=== PATIENT | female | born 1995 | race African-American/Black ===

== ENCOUNTER 2022-06-20 04:20 | Emergency (ER) | payer OTHER ==
[2022-06-20] MEDS ORDERED: DIPHENHYDRAMINE 50 MG/ML VIAL ONE (05:31)
[2022-06-20] MEDS ORDERED: METOCLOPRAMIDE 10 MG/2mL INJ ONE (05:31)
[2022-06-20] MEDS ORDERED: NA CHLORIDE 0.9% 500 ML ONE (05:32)
[2022-06-20] MEDS ORDERED: KETOROLAC 30 MG/ML INJ ONE (05:32)
[2022-06-20 06:11] LABS: Urine Blood 2+ (Negative); Urine Glucose Negative (Negative); Urine Protein Negative (Negative); Urine Specific Gravity 1.015 (1.005-1.030)
[2022-06-20 06:25] LABS: Urine Specific Gravity/Preg 1.015 (1.005-1.030)
[2022-06-20 06:44] VITALS: O2SAT 100
[2022-06-20 07:00] VITALS: BP 134/79; TEMP 98
--- NOTE | 2022-06-20 13:24 | RAD REPORT ---
EXAM DESCRIPTION: CT - Head Brain Wo Cont - 06/20/2022 7:03 am CLINICAL HISTORY: The patient is 26 years old and is Female; PAIN TECHNIQUE: Axial computed tomography images of the head/brain without intravenous contrast. Sagitt al and coronal reformatted images were created and reviewed. This CT exam was performed using one o r more of the following dose reduction techniques: automated exposure control, adjustment of the mA and/or kV according to patient size, and/or use of iterative reconstruction technique. COMPARISON: No relevant prior studies available. FINDINGS: Brain: Unremarkable. No hemorrhage. No significant white matter disease. No edema. Ventricles: Unremarkable. No ventriculomegaly. Bones/joints: Unremarkable. No acute fracture. Soft tissues: Unremarkable. Sinuses: Unremarkable as visualized. Mastoid air cells: Unremarkable as visualized. No mastoid effusion. IMPRESSION: No acute intracranial abnormality. 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 The interpreting radiologist is fully responsible for the content of the report.
--- NOTE | 2022-07-07 14:10 | EDPHYS ---
Physician Documentation [facility] Name: Natasha Sarmiento Age: 26 yrs Sex: Female : 1995 Arrival Date: 06/20/2022 Time: 04:24 Bed 6 Private MD: ED Physician Gabo Parra HPI: 06/20 05:08 This 26 yrs old Black Female presents to ER via Ambulatory with complaints of Headache. sp4 06:16 Patient states she has developed worsening headache in the last 24 hours that he is sp4 global headache and it is throbbing in quality moderate to severe, without vomiting, associated with light sensitivity, patient is breast-feeding at this time her baby is 11 months old, patient took Tylenol at home without relief, patient denied fever, neck stiffness, and denied vision changes. 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 Last tetanus immunization: < 5 years ago Flu vaccine is up to date. - Social history:: Smoking status: Patient denies any tobacco usage or history of. Patient/guardian denies using alcohol, street drugs. - Family history:: not pertinent. ROS: 06:16 Constitutional: Negative for fever, chills, and weight loss, Eyes: Negative for injury, sp4 pain, redness, and discharge, ENT: Negative for injury, pain, and discharge, Neck: Negative for injury, pain, and swelling, Cardiovascular: Negative for chest pain, palpitations, and edema, Respiratory: Negative for shortness of breath, cough, wheezing, and pleuritic chest pain, Abdomen/GI: Negative for abdominal pain, nausea, vomiting, diarrhea, and constipation, Back: Negative for injury and pain, MS/Extremity: Negative for injury and deformity, Skin: Negative for injury, rash, and discoloration, Neuro: Negative for weakness, numbness, tingling, and seizure, positive for global headache Psych: Negative for depression, anxiety, suicide ideation, homicidal ideation, and hallucinations, Allergy/Immunology: Negative for hives, rash, and allergies, Endocrine: Negative for neck swelling, polydipsia, polyuria, polyphagia, and marked weight changes, Hematologic/Lymphatic: Negative for swollen nodes, abnormal bleeding, and unusual bruising. Exam: 06:16 Constitutional: This is a well developed, well nourished patient who is awake, alert, sp4 and in no acute distress. Head/Face: Normocephalic, atraumatic. Eyes: Pupils equal round and reactive to light, extra-ocular motions intact. Lids and lashes normal. Conjunctiva and sclera are non-icteric and not injected. Cornea within normal limits. Periorbital areas with no swelling, redness, or edema. ENT: Nares patent. No nasal discharge, no septal abnormalities noted. Tympanic membranes are normal and external auditory canals are clear. Oropharynx with no redness, swelling, or masses, exudates, or evidence of obstruction, uvula midline. Mucous membranes moist. Neck: Trachea midline, no thyromegaly or masses palpated, and no cervical lymphadenopathy. Supple, full range of motion without nuchal rigidity, or vertebral point tenderness. No Meningismus. Chest/axilla: Normal chest wall appearance and motion. Nontender with no deformity. No lesions are appreciated. Cardiovascular: Regular rate and rhythm with a normal S1 and S2. No gallops, murmurs, or rubs. Normal PMI, no JVD. No pulse deficits. Respiratory: Lungs have equal breath sounds bilaterally, clear to auscultation and percussion. No rales, rhonchi or wheezes noted. No increased work of breathing, no retractions or nasal flaring. Abdomen/GI: Soft, non-tender, with normal bowel sounds. No distension or tympany. No guarding or rebound. No evidence of tenderness throughout. Back: No spinal tenderness. No costovertebral tenderness. Full range of motion. Skin: Warm, dry with normal turgor. Normal color with no rashes, no lesions, and no evidence of cellulitis. MS/ Extremity: Pulses equal, no cyanosis. Neurovascular intact. Full, normal range of motion. Neuro: Awake and alert, GCS 15, oriented to person, place, time, and situation. Cranial nerves II-XII grossly intact. Motor strength 5/5 in all extremities. Sensory grossly intact. Cerebellar exam normal. Normal gait. Psych: Awake, alert, with orientation to person, place and time. Behavior, mood, and affect are within normal limits. Vital Signs: 04:40 BP 130 / 86; Pulse 97; Resp 18; Temp 98.8; Pulse Ox 100% on R/A; Weight 52.16 kg; pf1 Height 5 ft. 3 in. ; Pain 9/10; 05:30 BP 119 / 83; Pulse 93; Resp 18; Pulse Ox 100% on R/A; pf1 06:30 BP 134 / 79; Pulse 97; Resp 18; Temp 98; Pulse Ox 100% on R/A; Pain 0/10; pf1 04:40 Body Mass Index 20.37 (52.16 kg, 160.02 cm) pf1 04:40 Pain Scale: Adult pf1 06:30 Pain Scale: Adult pf1 [place] Coma Score: 06:16 Eye Response: spontaneous(4). Motor Response: obeys commands(6). Verbal Response: sp4 oriented(5). Total: 15. MDM: 05:17 Patient medically screened. sp4 06:16 Differential diagnosis: migraine, subarachnoid bleed, tension headache, trigeminal sp4 neuralgia, vasomotor headache. Data reviewed: vital signs, nurses notes, lab test result(s), radiologic studies, CT scan. 06:20 ED course: CT head revealed no acute intracranial abnormality, patient's headache sp4 resolved with IV Toradol, IV Reglan, IV Benadryl. Patient stable for discharge home with as needed medications for the headache. 06/20 06:10 Order name: Urine --Ancillary (enter results) jb4 06/20 06:25 Order name: Urine --Ancillary; Complete Time: 06:26 EDMS 06/20 05:17 Order name: CT Head Brain wo Cont sp4 06/20 05:17 Order name: Saline Lock; Complete Time: 05:26 sp4 06/20 05:17 Order name: Urine Test (obtain specimen); Complete Time: 05:26 sp4 Administered Medications: 05:37 Drug: metoCLOPramide IVP 10 mg Route: IVP; Site: left antecubital; pf1 06:24 Follow up: Response: No adverse reaction; Marked relief of symptoms pf1 05:37 Drug: diphenhydrAMINE IVP 25 mg Route: IVP; Site: left antecubital; pf1 06:24 Follow up: Response: No adverse reaction; Marked relief of symptoms pf1 05:37 Drug: Ketorolac IVP 30 mg Route: IVP; Site: left antecubital; pf1 06:24 Follow up: Response: No adverse reaction; Marked relief of symptoms; Pain is decreased pf1 05:37 Drug: NS 0.9% IV 500 ml Route: IV; Rate: bolus; Site: left antecubital; pf1 06:24 Follow up: Response: No adverse reaction; Marked relief of symptoms; IV Status: pf1 Completed infusion; IV Intake: 500ml Disposition Summary: 06/20/22 06:22 Discharge Ordered Location: Home sp4 Problem: new sp4 Symptoms: are resolved sp4 Condition: Stable sp4 Diagnosis - Tension-type headache sp4 Followup: sp4 - With: Private Physician - When: 7 - 10 days - Reason: Re-evaluation by your physician Discharge Instructions: - Discharge Summary Sheet sp4 - Tension Headache, Adult sp4 Forms: - Thank You Letter sp4 Prescriptions: - Reglan 10 mg Oral Tablet - take 1 tablet by ORAL route every 8 hours PRN headache; 20 tablet; Refills: 0, sp4 Product Selection Permitted Signatures: Dispatcher [employer] Shelby Ayala RN RN pf1 Gabo Parra MD MD sp4
--- NOTE | 2022-07-07 14:10 | ER ---
Nurse's Notes [facility] Name: Natasha Sarmiento Age: 26 yrs Sex: Female : 1995 Arrival Date: 06/20/2022 Time: 04:24 Bed 6 Private MD: Diagnosis: Tension-type headache Presentation: 06/20 04:40 Chief complaint: Patient states: headache pain of 9 with nausea,onset 2300 tonight. pf1 Patient stated is currently . 04:40 Coronavirus screen: Vaccine status: Patient reports being unvaccinated. Client denies pf1 travel out of the [place] in the last 14 days. Client presents with at least one sign or symptom that may indicate coronavirus-19. Standard/surgical mask placed on the client. Ebola Screen: Patient negative for fever greater than or equal to 101.5 degrees Fahrenheit, and additional compatible Ebola Virus Disease symptoms. Initial Sepsis Screen: Does the patient meet any 2 criteria? No. Patient's initial sepsis screen is negative. Does the patient have a suspected source of infection? No. Patient's initial sepsis screen is negative. Risk Assessment: Do you want to hurt yourself or someone else? Patient reports no desire to harm self or others. Onset of symptoms was June 19, 2022. 04:40 Method Of Arrival: Ambulatory pf1 04:40 Acuity: MI 3 pf1 Triage Assessment: 05:30 Pain: Also complains of nausea. pf1 05:30 Headache History: The patient has had previous headaches and this one is similar to pf1 previous episodes. 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 Last tetanus immunization: < 5 years ago Flu vaccine is up to date. - Social history:: Smoking status: Patient denies any tobacco usage or history of. Patient/guardian denies using alcohol, street drugs. - Family history:: not pertinent. Screenin:51 [facility] ED Fall Risk Assessment (Adult) History of falling in the last 3 months, pf1 including since admission No falls in past 3 months (0 pts) Confusion or Disorientation No (0 pts) Intoxicated or Sedated No (0 pts) Impaired Gait No (0 pts) Mobility Assist Device Used No (0 pt) Altered Elimination No (0 pt) Score/Fall Risk Level 0 - 2 = Low Risk Oriented to surroundings, Maintained a safe environment, Educated pt \T\ family on fall prevention, incl call for assistance when getting out of bed, Assessed \T\ reinforced patient's understanding of fall precautions, Provided non-skid footwear, Hourly rounding (assess needs \T\ fall precautionary measures) done, Used ambulatory aids as needed (educated on \T\ assisted with), Used gait belt as appropriate. Abuse screen: Denies threats or abuse. Nutritional screening: No deficits noted. Tuberculosis screening: No symptoms or risk factors identified. Assessment: 04:48 General: Appears in no apparent distress. comfortable, well groomed, well developed, pf1 Behavior is calm, cooperative, appropriate for age, quiet. Pain: Complains of pain in head and back of head Pain currently is 9 out of 10 on a pain scale. Pain began 2300 tonight. Neuro: Reports headache frontal area, occipital area. Cardiovascular: No deficits noted. Capillary refill < 3 seconds Patient's skin is warm and dry. Respiratory: No deficits noted. Airway is patent Trachea midline Respiratory effort is even, unlabored, Respiratory pattern is regular, symmetrical, Breath sounds are clear bilaterally. GI: Abdomen is flat, non-distended, Bowel sounds present X 4 quads. Reports nausea. : No deficits noted. No signs and/or symptoms were reported regarding the genitourinary system. EENT: No deficits noted. No signs and/or symptoms were reported regarding the EENT system. Derm: No deficits noted. No signs and/or symptoms reported regarding the dermatologic system. Musculoskeletal: No deficits noted. No signs and/or symptoms reported regarding the musculoskeletal system. Circulation, motion, and sensation intact. Capillary refill < 3 seconds, Range of motion: intact in all extremities. 05:29 Reassessment: patient taken to [facility]. pf1 06:24 Reassessment: Patient appears in no apparent distress at this time. Patient and/or pf1 family updated on plan of care and expected duration. Pain level reassessed. Patient is alert, oriented x 3, equal unlabored respirations, skin warm/dry/pink. Patient states feeling better. Patient states symptoms have improved. Vital Signs: 04:40 BP 130 / 86; Pulse 97; Resp 18; Temp 98.8; Pulse Ox 100% on R/A; Weight 52.16 kg; pf1 Height 5 ft. 3 in. ; Pain 9/10; 05:30 BP 119 / 83; Pulse 93; Resp 18; Pulse Ox 100% on R/A; pf1 06:30 BP 134 / 79; Pulse 97; Resp 18; Temp 98; Pulse Ox 100% on R/A; Pain 0/10; pf1 04:40 Body Mass Index 20.37 (52.16 kg, 160.02 cm) pf1 04:40 Pain Scale: Adult pf1 06:30 Pain Scale: Adult pf1 [place] Coma Score: 06:16 Eye Response: spontaneous(4). Motor Response: obeys commands(6). Verbal Response: sp4 oriented(5). Total: 15. ED Course: 04:24 Patient arrived in ED. ja2 04:45 Shelby shaffer RN is Primary Nurse. pf1 04:47 Triage completed. pf1 04:52 Patient has correct armband on for positive identification. Bed in low position. Call pf1 light in reach. 05:00 Arm band placed on. pf1 05:08 Gabo Parra MD is Attending Physician. sp4 05:26 Inserted saline lock: 22 gauge in left antecubital area, using aseptic technique. ds4 06:24 Urine --Ancillary (enter results) Sent. pf1 06:32 No provider procedures requiring assistance completed. IV discontinued, intact, pf1 bleeding controlled, No redness/swelling at site. Pressure dressing applied. Administered Medications: 05:37 Drug: metoCLOPramide IVP 10 mg Route: IVP; Site: left antecubital; pf1 06:24 Follow up: Response: No adverse reaction; Marked relief of symptoms pf1 05:37 Drug: diphenhydrAMINE IVP 25 mg Route: IVP; Site: left antecubital; pf1 06:24 Follow up: Response: No adverse reaction; Marked relief of symptoms pf1 05:37 Drug: Ketorolac IVP 30 mg Route: IVP; Site: left antecubital; pf1 06:24 Follow up: Response: No adverse reaction; Marked relief of symptoms; Pain is decreased pf1 05:37 Drug: NS 0.9% IV 500 ml Route: IV; Rate: bolus; Site: left antecubital; pf1 06:24 Follow up: Response: No adverse reaction; Marked relief of symptoms; IV Status: pf1 Completed infusion; IV Intake: 500ml Medication: 06:33 VIS not applicable for this client. pf1 Intake: 06:24 IV: 500ml; Total: 500ml. pf1 Outcome: 06:22 Discharge ordered by . sp4 06:32 Discharged to home ambulatory. pf1 06:32 Condition: improved 06:32 Discharge instructions given to patient, Instructed on discharge instructions, follow up and referral plans. Demonstrated understanding of instructions, follow-up care, medications, Prescriptions given X 1. 06:33 Patient left the ED. pf1 Signatures: Wang Landon ds4 Pao Damico Pamala RN RN pf1 Gabo Parra MD MD sp4 Corrections: (The following items were deleted from the chart) 04:53 04:40 Chief complaint: Patient states: headache pain of 9 with nausea,onset 2300 pf1 tonight. pf1
== END 2022-06-20 06:33 | disposition home or self-care (01) ==
LOC: ER 04:20
DX: G44.209 Tension-type headache, unspecified, not intractable (principal); Z88.3 Allergy status to other anti-infective agents
CPT/HCPCS: 96361; 81025; 81003; 70450; 96375; 96374; 99284; J2765; J1200; J7040

== ENCOUNTER 2022-11-22 12:52 | Emergency (ER) | payer OTHER ==
--- OUTSIDE RECORDS SUMMARY | 2022-11-22 12:55 | XMS REPORT | Continuity of Care Document ---
:1995 Author Organization [facility] t Address [address] [place] [id number] Care Team Providers Name Role Phone [facility]_E Attending Clinician Unavailable [facility]_E Admitting Clinician Unavailable Payers Payer Name Policy Type Policy Number Effective Date Expiration Date [place] [employer] [place] [id number] 2022 [facility] - 00:00:00 STAR (MEDICAID HMO) Problems This patient has no known problems. Allergies, Adverse Reactions, Alerts Allergy Allergy Status Severity Reaction(s) Onset Inactive Treating Comm ents Source Name Type Date Date Clinician Erythrom Allergy Active Severe Anaphylaxis Pr ivia ycin to Medical Base substanc e Medications Ordered Filled Start Stop Current Ordering Indication Dosage Frequency Signature Comments Components Source Medication Medication Date Date Medication? Clinician (SIG) Name Name metronidazo metronidazo No 1applic Q1D metronidaz [facility] 0.75 % le 0.75 % ator(s) ole 0.75 % Medical (37.5 mg/5 (37.5 mg/5 ful (37.5 mg/5 gram) gram) gram) vaginal gel vaginal gel vaginal Insert 1 Insert 1 gel Insert applicatorf applicatorf 1 ul every ul every applicator day by day by ful every vaginal vaginal day by route at route at vaginal bedtime for bedtime for route at 5 days. 5 days. bedtime for 5 days. Vital Signs Vital Name Observation Time Observation Value Comments Source BP Diastolic 2022-07-17 00:00:00 76 mm[Hg] [facility] Height 2022-07-17 00:00:00 63 [in_i] [facility] BMI (Body Mass Index) 2022-07-17 00:00:00 19.5 kg/m2 [facility] BP Systolic 2022-07-17 00:00:00 109 mm[Hg] [facility] Body Weight 2022-07-17 00:00:00 1760 [oz_av] [facility] Procedures This patient has no known procedures. Plan of Care Planned Activity Planned Date Details Comments Source Diagnostic Test 2022-07-17 unlisted lab [code = [facility] Pending 00:00:00 unlisted lab] Diagnostic Test 2022-07-17 vitamin D, [facility] Pending 00:00:00 25-hydroxy, total, serum [code = vitamin D, 25-hydroxy, total, serum] Diagnostic Test 2022-07-17 Grapefruit IgE Ab [facility] Pending 00:00:00 [Units/volume] in Serum [code = 6131-7] Diagnostic Test 2022-07-17 Pyridoxine congeners [facility] Pending 00:00:00 [Mass/volume] in Serum or Plasma [code = 2901-7] Diagnostic Test 2022-07-17 HbA1c (hemoglobin [facility] Pending 00:00:00 A1c), blood [code = HbA1c (hemoglobin A1c), blood] Diagnostic Test 2022-07-17 TSH, serum or plasma [facility] Pending 00:00:00 [code = TSH, serum or plasma] Diagnostic Test 2022-07-17 lipid panel, serum [facility] Pending 00:00:00 [code = lipid panel, serum] Encounters Start End Encounter Admission Attending Care Care Encounter Source Date/Time Date/Time Type Type Clinicians Facility Department ID 2022-11-20 2022-11-20 Outpatient [facility]_Josed [facility] PRIV [id number] [facility] 00:00:00 00:00:00 onado_Javid [id number] Medica l 2022-07-17 2022-07-17 Outpatient [facility] PRIV [id number] [facility] 00:00:00 00:00:00 [id number] Medica l 2022-07-17 2022-07-17 Erliz [facility] 03 [facility] 00:00:00 00:00:00 Cece Sanchez [facility] ksenia EDI COORDINATOR: [id number] [facility] [address], [place] [address] , Ph. 2022-07-06 2022-07-06 Outpatient PRIV PRIV [id number] [facility] 00:00:00 00:00:00 [id number] Medica l 2022-07-06 2022-07-06 Outpatient PRIV PRIV [id number] [facility] 00:[facility]:00 00:00:00 [id number] Medica l 2022-07-06 2022-07-06 Outpatient PRIV PRIV [id number] [facility] 00:00:00 00:00:00 [id number] Medica l 2022-07-06 2022-07-06 Outpatient PRIV PRIV [id number] [facility] 00:00:00 00:00:00 [id number] Medica l 2022-07-05 2022-07-05 Outpatient PRIV PRIV [id number] [facility] 00:00:00 00:00:00 [id number] Medica l 2022-07-03 2022-07-03 Outpatient PRIV PRIV [id number] [facility] 00:00:00 00:00:00 [id number] Medica l 2022-07-03 2022-07-03 Outpatient PRIV PRIV [id number] [facility] 00:00:00 00:00:00 [id number] Medica l Results This patient has no known results.
[2022-11-22 14:04] LABS: SARS-CoV-2 Antigen Rapid Res Negative (Negative)
--- NOTE | 2022-11-22 14:52 | ER ---
Nurse's Notes [facility] Name: Natasha Sarmiento Age: 27 yrs Sex: Female : 1995 Arrival Date: 11/22/2022 Time: 12:52 Bed IW1 Private MD: Diagnosis: Acute bronchitis, unspecified;Cough;Acute upper respiratory infection, unspecified Presentation: 11/22 13:14 Chief complaint: Patient states: sore throat, ear pain onset Sunday. Pt was seen at [facility] on Sunday and diagnosed with a "viral infection." Pt states that she was swabbed for strep and it was negative. Coronavirus screen: Vaccine status: Patient reports being unvaccinated. Client denies travel out of the [place] in the last 14 days. Ebola Screen: Patient denies travel to an Ebola-affected area in the 21 days before illness onset. No symptoms or risks identified at this time. Initial Sepsis Screen: Does the patient meet any 2 criteria? No. Patient's initial sepsis screen is negative. Does the patient have a suspected source of infection? No. Patient's initial sepsis screen is negative. Risk Assessment: Do you want to hurt yourself or someone else? Patient reports no desire to harm self or others. Onset of symptoms was November 22, 2022. 13:14 Method Of Arrival: Ambulatory cm10 13:14 Acuity: MI 4 cm10 Historical: - Allergies: 13:16 Erythromycin; cm10 - PMHx: 13:16 headache; HSV 1 \\T\\ 2; cm10 - PSHx: 13:16 section; cm10 - Immunization history:: Adult Immunizations. - Social history:: Smoking status: Patient denies any tobacco usage or history of. - Family history:: not pertinent. Vital Signs: 13:14 BP 118 / 81; Pulse 116; Resp 18; Temp 98.6; Pulse Ox 99% on R/A; Weight 55.34 kg; cm10 Height 5 ft. 3 in. ; Pain 5/10; 13:14 Body Mass Index 21.61 (55.34 kg, 160.02 cm) cm10 13:14 Pain Scale: Adult cm10 ED Course: 13:01 Patient arrived in ED. im 13:04 Lexi Wong MD is Attending Physician. cp3 13:16 Triage completed. cm10 13:16 Arm band placed on Patient placed in waiting room. cm10 13:32 SARS RAPID Sent. cm10 13:32 Influenza Screen (a \\T\\ B) Sent. cm10 15:11 Iwona Rivera, RN is Primary Nurse. Administered Medications: No medications were administered Outcome: 14:51 Discharge ordered by . cp3 15:11 Patient left the ED. Signatures: Lexi Wong MD MD cp3 Iwona Rivera, RN RN Lety Mazariegos Clarissa, TENA RN cm10
--- NOTE | 2022-11-22 14:52 | EDPHYS ---
Physician Documentation [facility] Name: Natasha Sarmiento Age: 27 yrs Sex: Female : 1995 Arrival Date: 11/22/2022 Time: 12:52 Bed IW1 Private MD: ED Physician Lexi Wong HPI: 11/22 13:57 This 27 yrs old Black Female presents to ER via Ambulatory with complaints of Sore cp3 Throat, Ear Pain. 13:57 Onset: The symptoms/episode began/occurred gradually, 1 week(s) ago. Severity of cp3 symptoms: At their worst the symptoms were moderate. Associated signs and symptoms: Pertinent positives: cough, fever, flu-like symptoms. The patient has experienced a previous episode. The patient is a 27-year-old female who endorses that she had a negative strep test on Sunday and endorses cough, subjective fever, rhinorrhea, myalgias for 1 week.. 13:57 The patient has been recently seen by a physician: the patient's primary care provider. 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 - Social history:: Smoking status: Patient denies any tobacco usage or history of. - Family history:: not pertinent. ROS: 13:57 Eyes: Negative for injury, pain, redness, and discharge, Cardiovascular: Negative for cp3 chest pain, palpitations, and edema. 13:57 Abdomen/GI: Negative for abdominal pain, nausea, vomiting, diarrhea, and constipation, Back: Negative for injury and pain, : Negative for injury, bleeding, discharge, and swelling, MS/Extremity: Negative for injury and deformity, Skin: Negative for injury, rash, and discoloration, Neuro: Negative for headache, weakness, numbness, tingling, and seizure, Psych: Negative for depression, anxiety, suicide ideation, homicidal ideation, and hallucinations, Allergy/Immunology: Negative for hives, rash, and allergies, Endocrine: Negative for neck swelling, polydipsia, polyuria, polyphagia, and marked weight changes, Hematologic/Lymphatic: Negative for swollen nodes, abnormal bleeding, and unusual bruising. 13:57 ENT: Positive for rhinorrhea, sinus congestion, sore throat. 13:57 Respiratory: Positive for cough. 13:57 Respiratory: Positive for shortness of breath. Exam: 13:57 Constitutional: This is a well developed, well nourished patient who is awake, alert, cp3 and in no acute distress. Head/Face: Normocephalic, atraumatic. Eyes: Pupils equal round and reactive to light, extra-ocular motions intact. Lids and lashes normal. Conjunctiva and sclera are non-icteric and not injected. Cornea within normal limits. Periorbital areas with no swelling, redness, or edema. ENT: Nares patent. No nasal discharge, no septal abnormalities noted. Tympanic membranes are normal and external auditory canals are clear. Oropharynx with no redness, swelling, or masses, exudates, or evidence of obstruction, uvula midline. Mucous membranes moist. Neck: Trachea midline, no thyromegaly or masses palpated, and no cervical lymphadenopathy. Supple, full range of motion without nuchal rigidity, or vertebral point tenderness. No Meningismus. Chest/axilla: Normal chest wall appearance and motion. Nontender with no deformity. No lesions are appreciated. Cardiovascular: Regular rate and rhythm with a normal S1 and S2. No gallops, murmurs, or rubs. Normal PMI, no JVD. No pulse deficits. Abdomen/GI: Soft, non-tender, with normal bowel sounds. No distension or tympany. No guarding or rebound. No evidence of tenderness throughout. Back: No spinal tenderness. No costovertebral tenderness. Full range of motion. 13:57 Respiratory: Breath sounds: decreased breath sounds, Patient with mild hacking cough with scant wheezing heard on expiration. Vital Signs: 13:14 BP 118 / 81; Pulse 116; Resp 18; Temp 98.6; Pulse Ox 99% on R/A; Weight 55.34 kg; cm10 Height 5 ft. 3 in. ; Pain 5/10; 13:14 Body Mass Index 21.61 (55.34 kg, 160.02 cm) cm10 13:14 Pain Scale: Adult cm10 MDM: 13:04 Patient medically screened. cp3 13:57 Differential diagnosis: bronchitis, pharyngitis, upper respiratory infection, viral cp3 syndrome. Data reviewed: vital signs, nurses notes, lab test result(s), COVID and flu test. 11/22 13:31 Order name: Influenza Screen (a \T\ B); Complete Time: 14:50 iw 11/22 14:50 Interpretation: FLUA <p>FLU A ----- NEGATIVE (could be below detectable limits, suggest cp3 culture)</p>; FLUB <p>FLU B ----- NEGATIVE (could be below detectable levels, suggest culture)</p>. 11/22 13:31 Order name: SARS RAPID; Complete Time: 14:22 iw 11/22 14:50 Interpretation: SARS RESULT Negative. cp3 Administered Medications: No medications were administered Disposition Summary: 11/22/22 14:51 Discharge Ordered Location: Home cp3 Condition: Stable cp3 Diagnosis - Acute bronchitis, unspecified cp3 - Cough cp3 - Acute upper respiratory infection, unspecified cp3 Followup: cp3 - With: Private Physician - When: - Reason: Recheck today's complaints Discharge Instructions: - Discharge Summary Sheet cp3 - Acute Bronchitis, Adult cp3 - Upper Respiratory Infection, Adult, [id number] cp3 Forms: - Medication Reconciliation Form cp3 - Thank You Letter cp3 - Antibiotic Education cp3 - Prescription Opioid Use cp3 - Patient Portal Instructions cp3 Prescriptions: - ProAir RespiClick 90 mcg/actuation Inhalation Aerosol Powder, Breath Activated - administer 1 inhalation by INHALATION route once; 1 Each; Refills: 0, Product cp3 Selection Permitted - Augmentin 500-125 mg Oral Tablet - take 1 tablet by ORAL route every 8 hours for 10 days; 30 tablet; Refills: 0, cp3 Product Selection Permitted - Prednisone 20 mg Oral Tablet - take 2 tablets by ORAL route once daily for 5 days; 10 tablet; Refills: 0, cp3 Product Selection Permitted Signatures: Dispatcher [employer] Lexi Whittaker MD MD cp3 Zuleyka áCrdenas RN RN cm10
[2022-11-22 15:22] VITALS: BP 118/81; TEMP 98.6; O2SAT 99
== END 2022-11-22 15:11 | disposition home or self-care (01) ==
LOC: ER 12:52
DX: J20.9 Acute bronchitis, unspecified (principal); J06.9 Acute upper respiratory infection, unspecified; Z20.822 Contact with and (suspected) exposure to COVID-19; Z88.3 Allergy status to other anti-infective agents
CPT/HCPCS: 36415; 87804; 87811